=== PATIENT | male | born 1995 | race Caucasian/White ===

== ENCOUNTER 2018-04-25 08:13 | Emergency (ER) | payer OTHER ==
[2018-04-25 08:49] LABS: PLATELET COUNT 244 10^3/uL (150-400)
[2018-04-25] MEDS ORDERED: IOPAMIDOL (ISOVUE-300) 100 ML BTL ONE ×2 (09:34→10:07)
--- NOTE | 2018-04-25 09:57 | EDPHY ---
H & P Stated Complaint: dx hep c/ruq abd pain x 2 weeks/us by pcp Time Seen by Provider: 04/25/18 08:44 HPI/ROS: Chief Complaint: Abdominal pain HPI: 22-year-old male has been having intermittent abdominal pain for the last 2 weeks. He describes it as onset of very sharp right upper so quadrant abdominal pain which becomes a 9/10 which then improved. He was seen by his primary care physician last week and was diagnosed with hepatitis C. He does have a history of drug abuse in the past. He also had an abdominal ultrasound which she reported was negative. This morning he woke up with severe right upper quadrant abdominal pain once again. This has since resolved. Some nausea but no vomiting. No dark black bowel movements or constipation. He does have a history of peritonitis after a ruptured appendicitis. No fevers but some subjective chills this morning. No chest pain or shortness of breath. ROS: 10 point Review of Systems is negative except as noted in the HPI. PMH: IV drug use, hepatitis-C, ruptured appendicitis Social History: Positive smoking, occasional alcohol Family History: non-contributory Physical Exam: Gen: Awake, Alert, No Distress HEENT: Nose: no rhinorrhea Eyes: PERRLA, EOMI Mouth: Moist mucosa Neck: Supple, no JVD Chest: nontender, lungs clear to auscultation Heart: S1, S2 normal, no murmur Abd: Soft, non-tender, no guarding Back: no CVA tenderness, no midline tenderness Ext: no edema, non-tender Skin: no rash Neuro: CN II-XII intact, Sensation grossly intact, Strength 5/5 in bilateral upper and lower extremities - Personal History Current Tetanus Diphtheria and Acellular Pertussis (TDAP): Yes Tetanus Vaccine Date: 2011 - Medical/Surgical History Hx Asthma: No Hx Chronic Respiratory Disease: No Hx Diabetes: No Hx Cardiac Disease: No Hx Renal Disease: No Hx Cirrhosis: No Hx Alcoholism: No Hx HIV/AIDS: No Hx Splenectomy or Spleen Trauma: No Other PMH: ptsd, add, appendectomy w multiple abd surgeries (drains for abcesses ); anxiety;. OPIOID ABUSE W/ PREVIOUS OD, anoxeria - Social History Smoking Status: Current every day smoker Constitutional: Initial Vital Signs Temperature (C) 36.8 C 04/25/18 08:16 Heart Rate 84 04/25/18 08:16 Respiratory Rate 16 04/25/18 08:16 Blood Pressure 121/80 H 04/25/18 08:16 O2 Sat (%) 96 04/25/18 08:16 O2 Delivery Mode Room Air Allergies/Adverse Reactions: No Known Allergies Allergy (Verified 04/25/18 08:15) Home Medications: Medication Instructions Recorded Gabapentin 04/25/18 Hyoscyamine Sulfate [Levsin] 0.25 mg PO Q4 #10 tablet 04/25/18 Medical Decision Making - Diagnostics Imaging Results: Imaging Impressions Abdomen CT 04/25/18 09:06 Impression: No source for right flank pain identified. A message was left for Mehrdad Sellers MD, at 04/25/2018 11:06 General information for patients regarding this examination can be found at [email or web address] If you have questions or comments about this report, please contact me at (hospital) or [phone] (cell). ED Course/Re-evaluation: 22-year-old male with a recent diagnosis of hepatitis-C who is presenting with intermittent crampy abdominal pain. Laboratory evaluations showed a mild elevation in his transaminases otherwise is unremarkable. He had a normal ultrasound by his primary care physician a week ago. CT scan today shows no acute abnormality to explain his pain. He has an appointment to follow up with Infectious Disease. There is no surgical or infectious process at this time. Will treat him with antispasm medications as the pain comes and goes. He is not to be taking ibuprofen or acetaminophen. He will follow up with GI and Infectious Disease. - Data Points Laboratory Results: Laboratory Results 04/25/18 08:37 04/25/18 08:37 04/25/18 04/25/18 08:37 08:37 WBC 7.92 10^3/uL 10^3/uL (3.80-9.50) RBC 6.04 10^6/uL 10^6/uL (4.40-6.38) Hgb 18.9 g/dL H g/dL (13.7-17.5) Hct 52.4 % H % (40.0-51.0) MCV 86.8 fL fL (81.5-99.8) MCH 31.3 pg pg (27.9-34.1) MCHC 36.1 g/dL g/dL (32.4-36.7) RDW 13.3 % % (11.5-15.2) Plt Count 244 10^3/uL 10^3/uL (150-400) MPV 9.4 fL fL (8.7-11.7) Neut % (Auto) 74.3 % H % (39.3-74.2) Lymph % (Auto) 15.9 % % (15.0-45.0) [place] % (Auto) 7.8 % % (4.5-13.0) Eos % (Auto) 0.8 % % (0.6-7.6) Baso % (Auto) 0.9 % % (0.3-1.7) Nucleat RBC Rel Count 0.0 % % (0.0-0.2) Absolute Neuts (auto) 5.89 10^3/uL 10^3/uL (1.70-6.50) Absolute Lymphs (auto) 1.26 10^3/uL 10^3/uL (1.00-3.00) Absolute Monos (auto) 0.62 10^3/uL 10^3/uL (0.30-0.80) Absolute Eos (auto) 0.06 10^3/uL 10^3/uL (0.03-0.40) Absolute Basos (auto) 0.07 10^3/uL 10^3/uL (0.02-0.10) Absolute Nucleated RBC 0.00 10^3/uL 10^3/uL (0-0.01) Immature Gran % 0.3 % % (0.0-1.1) Immature Gran # 0.02 10^3/uL 10^3/uL (0.00-0.10) Sodium 137 mEq/L mEq/L (135-145) Potassium 4.0 mEq/L mEq/L (3.3-5.0) Chloride 99 mEq/L mEq/L (97-110) Carbon Dioxide 25 mEq/l mEq/l (22-31) Anion Gap 13 mEq/L mEq/L (8-16) BUN 9 mg/dL mg/dL (7-23) Creatinine 0.8 mg/dL mg/dL (0.7-1.3) Estimated GFR > 60 Glucose 94 mg/dL mg/dL (70-100) Calcium 10.1 mg/dL mg/dL (8.5-10.4) Total Bilirubin 1.4 mg/dL mg/dL (0.1-1.4) Conjugated Bilirubin 0.4 mg/dL mg/dL (0.0-0.5) Unconjugated Bilirubin 1.0 mg/dL mg/dL (0.0-1.1) AST 78 IU/L H IU/L (17-59) ALT 192 IU/L H IU/L (21-72) Alkaline Phosphatase 73 IU/L IU/L (38-126) Total Protein 7.9 g/dL g/dL (6.3-8.2) Albumin 4.6 g/dL g/dL (3.5-5.0) Lipase 73 IU/L IU/L (23-300) Departure - Departure Disposition: Home, Routine, Self-Care Clinical Impression: Abdominal pain Condition: Good Instructions: Acute Abdominal Pain (ED) Additional Instructions: Follow up with primary care physician and infectious disease doctor in the next 3-4 days. You may take antispasm medication if you're abdominal pain returns. Return to the emergency department for persistent uncontrolled pain, nausea vomiting, fevers, chills, or any other concerns. Referrals: Donn Escalona MD [Primary Care Provider] - As per Instructions Prescriptions: Hyoscyamine Sulfate [Levsin] 0.25 mg PO Q4 #10 tablet
[2018-04-25 11:16] VITALS: BP 131/86
== END 2018-04-25 11:42 | disposition home or self-care (01) ==
DX: R10.9 Unspecified abdominal pain (principal); F17.200 Nicotine dependence, unspecified, uncomplicated; Z90.89 Acquired absence of other organs
CPT/HCPCS: Q9967

== ENCOUNTER 2018-07-13 07:47 | Day surgery (SDC) | payer OTHER ==
[2018-07-13] MEDS ORDERED: LR 1,000 ML IV ONE (07:54)
--- NOTE | 2018-07-13 08:20 | PDANEPAE ---
ANE Past Medical History - Cardiovascular History Hx Hypertension: No Hx Arrhythmias: No Hx Chest Pain: No Hx Coronary Artery / Peripheral Vascular Disease: No Hx CHF / Valvular Disease: No Hx Palpitations: No - Pulmonary History Hx COPD: No Hx Asthma/Reactive Airway Disease: No Hx Recent Upper Respiratory Infection: No Hx Oxygen in Use at Home: No Hx Sleep Apnea: No Sleep Apnea Screening Result - Last Documented: Negative Pulmonary History Comment: PNEUMONIA 2016 - Neurologic History Hx Cerebrovascular Accident: No Hx Seizures: No Hx Dementia: No - Endocrine History Hx Diabetes: No - Renal History Hx Renal Disorders: No - Liver History Hx Hepatic Disorders: Yes Hepatic History Comment: HEP C TAKING PO MEDICATION TO TREAT - Neurological & Psychiatric Hx Hx Neurological and Psychiatric Disorders: Yes Neurological / Psychiatric History Comment: ANXIETY - Cancer History Hx Cancer: No - Congenital Disorder History Hx Congenital Disorders: No - GI History Hx Gastrointestinal Disorders: Yes Gastrointestinal History Comment: INTERMITTENT HEARTBURN. C-DIFF 05/02/18. RT FLANK DISCOMFORT SINCE 03/2018 - Other Health History Other Health History: PREV HEROIN OD - Chronic Pain History Chronic Pain: Yes (RT FLANK) - Surgical History Prior Surgeries: APPENDENDECTOMY RUPTURED WITH PERITONITIS WITH POST ABCESS REMVL ANE Review of Systems Review of Systems: - Exercise capacity METS (RN): 6 METS ANE Patient History - Allergies Allergies/Adverse Reactions: No Known Allergies Allergy (Verified 04/25/18 08:15) - Home Medications Home Medications: Gabapentin BID 04/25/18 [Last Taken Unknown] Bentyl 10 MG (*) PRN 06/20/18 [Last Taken Unknown] Fiber DAILY 06/20/18 [Last Taken Unknown] Harvoni 90-400 mg Tablet DAILY 06/20/18 [Last Taken Unknown] Herbals/Supplements -Info Only DAILY 06/20/18 [Last Taken Unknown] Pepcid 20 MG (*) DAILY 06/20/18 [Last Taken Unknown] - NPO status NPO Since - Liquids (Date): 07/12/18 NPO Since - Liquids (Time): 23:00 NPO Since - Solids (Date): 07/12/18 NPO Since - Solids (Time): 09:00 - Smoking Hx Smoking Status: Current some day smoker ANE Labs/Vital Signs - Vital Signs Blood Pressure: 139/90 Heart Rate: 73 Respiratory Rate: 14 O2 Sat (%): 97 Height: 182.88 cm Weight: 75.296 kg ANE Physical Exam - Airway Neck exam: FROM Mallampati Score: Class 1 Mouth exam: normal dental/mouth exam - Pulmonary Pulmonary: no respiratory distress - Cardiovascular Cardiovascular: regular rate and rhythym - ASA Status ASA Status: II ANE Anesthesia Plan Total IV Anesthesia: Yes
[2018-07-13] MEDS ORDERED: PROPOFOL/EMULSION 500 MG/50 ML BOTTLE IV ONE ×2 (08:44→09:33)
[2018-07-13] MEDS ORDERED: LIDOCAINE 2% 100 MG/5 ML SYR ONE (08:44)
--- NOTE | 2018-07-13 09:24 | PDGENHP ---
History & Physical Chief Complaint: CC: Abdominal pain History of Present Illness: 23 year old male with HCV. Patient has been on treatment with Harvoni. Hx of IV and ETOH use. Presents with c/o abdominal pain. Prior history of appendicitis with abcess and prolonged hospital course. Hx of adhesions and abdominal pain. Normal CT scan and abdominal U/S. Pertinent Past, Social, Family History: see above Relevant Physical Exam: Lungs clear. Cardiac normal s1s2
[2018-07-13] MEDS ORDERED: NALOXONE HCL 0.4 MG/ML INJ IVP PRN (09:40)
[2018-07-13] MEDS ORDERED: ONDANSETRON 4 MG/2 ML VIAL IVP PRN (09:40)
[2018-07-13] MEDS ORDERED: ALBUTEROL 3 ML DEYVIAL IH PRN (09:40)
--- NOTE | 2018-07-13 11:17 | POSTANESTH ---
Post Anesthetic Evaluation Cardiovascular Status: Similar to Pre-Op Cond Respiratory Status: Similar to Pre-op Cond. Level of Consciousness/Mental Status: Alert and Oriented Pain Control: Adequate, Prn Tx Ordered Nausea/Vomiting Control: Adequate, Prn Tx Ordered Complications Possibly Related to Anesthesia: None Noted
[2018-07-13 11:59] VITALS: BP 125/90
--- NOTE | 2018-07-20 11:08 | GIREPORT ---
[facility] - Endoscopy Department Patient Name: Arcenio Adan Procedure Date: 07/13/2018 9:33 AM Patient Type: Outpatient Attending / ER Physician: Johnathan Chandra MD Procedure: Colonoscopy Indications: Abdominal pain in the right upper quadrant Providers: Johnathan Chandra MD Medicines: Propofol per Anesthesia, General Anesthesia Complications: No immediate complications. Description of Procedure: After obtaining informed consent, the scope was passed under direct vis ion. Throughout the procedure, the patient's blood pressure, pulse, and oxyg en saturations were monitored continuously. The Colonoscope with irrigatio n channel was introduced through the anus and advanced to the cecum, identified by appendiceal orifice and ileocecal valve. The colonoscopy was performed without difficulty. The patient tolerated the procedure well. The quality of the bowel preparation was good. The terminal ileum, ileoceca l valve, appendiceal orifice, and rectum were photographed. Moderate Sedation: GA Findings: The terminal ileum appeared normal. The colon (entire examined portion) appeared normal. Biopsies for histo logy were taken with a cold forceps from the ascending colon for evaluation of microscopic colitis. No additional abnormalities were found on retroflexion. Estimated Blood Loss: Estimated blood loss: none. Post Op Diagnosis: - The examined portion of the ileum was normal. - The entire examined colon is normal. Biopsied. - No source for abdominal pain identified. Recommendation: - Patient has a contact number available for emergencies. The signs and symptoms of potential delayed complications were discussed with the pat ient. Return to normal activities tomorrow. Written discharge instructions we re provided to the patient. - Resume regular diet. - Continue present medications. - Await pathology results. - Repeat colonoscopy at age 48 for screening purposes. - Trial of Nortriptyline 50 mg po qhs. - Return to GI office in 2 months. - Thank you for allowing me to participate in the care of your patient. Attending Participation: I personally performed the entire procedure. Johnathan Chandra MD Johnathan Chandra MD 07/13/2018 10:06:35 AM This report has been signed electronicallyJohnathan Chandra MD Number of Addenda: 0 Note Initiated On: 07/13/2018 9:33 AM Total Procedure Duration Time 0 hours 10 minutes 6 seconds [email or web address]
--- NOTE | 2018-07-20 11:08 | GIREPORT ---
[facility] Surgical Services - Endoscopy Department Patient Name: Arcenio Adan Procedure Date: 07/13/2018 8:25 AM Patient Type: Outpatient Attending MD/ ER Physician: Johnathan Chandra MD Procedure: Upper GI endoscopy Indications: Abdominal pain in the right upper quadrant, History of HCV, s/p treatme nt with Harvoni. Normal CT Scan of the abdomen, normal RUQ US and normal H JACQUES Scan. Providers: Johnathan Chandra MD Medicines: Propofol per Anesthesia Complications: No immediate complications. Description of Procedure: After obtaining informed consent, the endoscope was passed under direct vision. Throughout the procedure, the patient's blood pressure, pulse, and oxygen saturations were monitored continuously. The Endoscope was intro duced through the mouth, and advanced to the second part of duodenum[facility] accomplished without difficulty. The patient tolerated th e procedure well. Moderate Sedation: GA Findings: The examined esophagus was normal. Biopsies were taken with a cold forc eps for histology. A small hiatal hernia was present. Patchy mildly erythematous mucosa without bleeding was found in the gas tric antrum. Biopsies were taken with a cold forceps for Helicobacter pylori testing. The examined duodenum was normal. Biopsies for histology were taken wit h a cold forceps for evaluation of celiac disease. Estimated Blood Loss: Estimated blood loss: none. Post Op Diagnosis: - Normal esophagus. Biopsied. - Small hiatal hernia. - Erythematous mucosa in the antrum. Biopsied. - Normal examined duodenum. Biopsied. Recommendation: - Await pathology results. - Perform a colonoscopy today. - Thank you for allowing me to participate in the care of your patient. Attending Participation: I personally performed the entire procedure. Johnathan Chandra MD Johnathan Chandra MD 07/13/2018 9:37:51 AM This report has been signed electronicallyStolivia Chandra MD Number of Addenda: 0 Note Initiated On: 07/13/2018 8:25 AM [email or web address]
== END 2018-07-13 11:52 | disposition home or self-care (01) ==
LOC: FSGY 07:47
PROVIDERS: ATTEND Internal Medicine Gastroenterology
DX: R10.11 Right upper quadrant pain (principal); B19.20 Unspecified viral hepatitis C without hepatic coma; F41.9 Anxiety disorder, unspecified; F11.21 Opioid dependence, in remission; Z91.5 Personal history of self-harm
CPT/HCPCS: J2001; J2704

== ENCOUNTER 2018-07-20 10:02 | Emergency (ER) | payer OTHER ==
[2018-07-20] MEDS ORDERED: METOCLOPRAMIDE 10 MG/2 ML VIAL IVP ONE (10:34)
[2018-07-20] MEDS ORDERED: NS 1,000 ML IV ONE (10:34)
[2018-07-20] MEDS ORDERED: KETOROLAC 30 MG/1 ML SDV IVP ONE (10:37)
--- NOTE | 2018-07-20 10:41 | EDPHY ---
H & P Stated Complaint: Acute on chronic epigastric pain Time Seen by Provider: 07/20/18 10:31 HPI/ROS: CHIEF COMPLAINT: Chronic abdominal pain HISTORY OF PRESENT ILLNESS: The patient is a 23-year-old man who reports that he has been having chronic abdominal pain since April 19. He reports that he has been to the ER for 5 times as well as seen by Gastroenterology. He has had an upper endoscopy and colonoscopy that have been negative. He has had several CT scans all of which have been negative. He has had 2 ultrasounds which have been negative. He reports that he has ongoing symptoms. They are slightly worse than usual today. He has been taking his home medications without relief. He also has a history of opiate abuse and overdose with a previous visit for cardiac arrest after overdose. He has had an appendectomy complicated by abscess formation and repeat surgeries. Severity: Moderate but chronic Modifying factors: None REVIEW OF SYSTEMS: Constitutional: denies: chills, fever, recent illness, recent injury EENTM: denies: blurred vision, double vision, nose congestion Respiratory: denies: cough, shortness of breath Cardiac: denies: chest pain, irregular heart rate, lightheadedness, palpitations Gastrointestinal/Abdominal: See HPI denies: diarrhea, nausea, vomiting, blood streaked stools Genitourinary: denies: dysuria, frequency, hematuria, pain Musculoskeletal: denies: joint pain, muscle pain Skin: denies: lesions, rash, jaundice, bruising Neurological: denies: headache, numbness, paresthesia, tingling, dizziness, weakness Hematologic/Lymphatic: denies: blood clots, easy bleeding, easy bruising Immunologic/allergic: denies: HIV/AIDS, transplant 10 systems reviewed and negative except as noted EXAM: GENERAL: Well-appearing, well-nourished and in no acute distress. HEAD: Atraumatic, normocephalic. EYES: Pupils equal round and reactive to light, extraocular movements intact, sclera anicteric, conjunctiva are normal. ENT: TMs normal, nares patent, oropharynx clear without exudates. Moist mucous membranes. NECK: Normal range of motion, supple without lymphadenopathy or JVD. LUNGS: Breath sounds clear to auscultation bilaterally and equal. No wheezes rales or rhonchi. HEART: Regular rate and rhythm without murmurs, rubs or gallops. ABDOMEN: Soft, nontender, normoactive bowel sounds. No guarding, no rebound. No masses appreciated. BACK: No CVA tenderness, no spinal tenderness, step-offs or deformities EXTREMITIES: Normal range of motion, no pitting or edema. No clubbing or cyanosis. NEUROLOGICAL: Cranial nerves II through XII grossly intact. Normal speech, normal gait. 5/5 strength, normal movement in all extremities, normal sensation , normal reflexes PSYCH: Normal mood, normal affect. SKIN: Warm, dry, normal turgor, no visible rashes or lesions. Source: Patient Exam Limitations: No limitations - Personal History Current Tetanus/Diphtheria Vaccine: Yes Current Tetanus Diphtheria and Acellular Pertussis (TDAP): Yes Tetanus Vaccine Date: 2011 - Medical/Surgical History Hx Asthma: No Hx Chronic Respiratory Disease: No Hx Diabetes: No Hx Cardiac Disease: No Hx Renal Disease: No Hx Cirrhosis: No Hx Alcoholism: No Hx HIV/AIDS: No Hx Splenectomy or Spleen Trauma: No Other PMH: ptsd, add, appendectomy w multiple abd surgeries (drains for abcesses ); anxiety;. OPIOID ABUSE W/ PREVIOUS OD, anoxeria - Family History Significant Family History: No pertinent family hx - Social History Smoking Status: Former smoker Alcohol Use: Sober Drug Use: None Constitutional: Initial Vital Signs Temperature (C) 36.6 C 07/20/18 10:10 Heart Rate 68 07/20/18 10:10 Respiratory Rate 16 07/20/18 10:10 Blood Pressure 124/72 H 07/20/18 10:10 O2 Sat (%) 97 07/20/18 10:10 O2 Delivery Mode Room Air Allergies/Adverse Reactions: No Known Allergies Allergy (Verified 04/25/18 08:15) Home Medications: Medication Instructions Recorded Fiber DAILY 06/20/18 Harvoni 90-400 mg Tablet DAILY 06/20/18 Herbals/Supplements -Info Only DAILY 06/20/18 Pepcid 20 MG (*) DAILY 06/20/18 Hyoscyamine Sulfate 07/20/18 Nortriptyline HCl 07/20/18 Ondansetron Odt [Zofran Odt 4 mg 4 mg PO Q4 PRN #20 tab 07/20/18 (RX)] Medical Decision Making ED Course/Re-evaluation: The patient's abdomen is completely benign. He describes the pain as being in the epigastric region. He denies significant alcohol abuse. He is afebrile. We discussed further testing here in the department but it seems like it would be of little use. He has had multiple tests were in the last couple of months that have all been negative. Her symptoms have not significantly changed. We agreed to try and manage his pain in I will recheck his lab work. 11:45 a.m. the patient's abdominal exam remains benign. He states that it does not really feel better. His lab work is reassuring. We will try ketamine. I offered Haldol which she states makes him very agitated. He states that he has never really found a particular medication that is helpful for his chronic pain. 1:00 p.m. The patient does have some improvement after ketamine. He is asking for 2nd dose before goes. Otherwise he would like to go home. He has follow- up appointment with his gastrologist on the . He is asking for refill of Zofran. He declines other testing or workup. Differential Diagnosis: Partial list of the Differential diagnosis considered include but were not limited to; chronic abdominal pain, gastroparesis and although unlikely based on the history and physical exam, I also considered perforation, biliary disease , liver disease, obstruction, ischemia. I discussed these differential diagnoses and the plan with the patient as well as the usual and expected course. The patient understands that the diagnosis is provisional and that in medicine we are not always correct and that further workup is often warranted. Usual and customary warnings were given. All of the patient's questions were answered. The patient was instructed to return to the emergency department should the symptoms at all worsen or return, otherwise to followup with the physician as we discussed. - Data Points Laboratory Results: Laboratory Results 07/20/18 10:50 07/20/18 10:50 07/20/18 07/20/18 10:50 10:50 WBC 7.71 10^3/uL 10^3/uL (3.80-9.50) RBC 5.72 10^6/uL 10^6/uL (4.40-6.38) Hgb 17.4 g/dL g/dL (13.7-17.5) Hct 48.6 % % (40.0-51.0) MCV 85.0 fL fL (81.5-99.8) MCH 30.4 pg pg (27.9-34.1) MCHC 35.8 g/dL g/dL (32.4-36.7) RDW 13.1 % % (11.5-15.2) Plt Count 257 10^3/uL 10^3/uL (150-400) MPV 8.9 fL fL (8.7-11.7) Neut % (Auto) 67.1 % % (39.3-74.2) Lymph % (Auto) 25.7 % % (15.0-45.0) [place] % (Auto) 5.4 % % (4.5-13.0) Eos % (Auto) 1.0 % % (0.6-7.6) Baso % (Auto) 0.5 % % (0.3-1.7) Nucleat RBC Rel Count 0.0 % % (0.0-0.2) Absolute Neuts (auto) 5.17 10^3/uL 10^3/uL (1.70-6.50) Absolute Lymphs (auto) 1.98 10^3/uL 10^3/uL (1.00-3.00) Absolute Monos (auto) 0.42 10^3/uL 10^3/uL (0.30-0.80) Absolute Eos (auto) 0.08 10^3/uL 10^3/uL (0.03-0.40) Absolute Basos (auto) 0.04 10^3/uL 10^3/uL (0.02-0.10) Absolute Nucleated RBC 0.00 10^3/uL 10^3/uL (0-0.01) Immature Gran % 0.3 % % (0.0-1.1) Immature Gran # 0.02 10^3/uL 10^3/uL (0.00-0.10) Sodium 141 mEq/L mEq/L (135-145) Potassium 4.0 mEq/L mEq/L (3.3-5.0) Chloride 102 mEq/L mEq/L (97-110) Carbon Dioxide 27 mEq/l mEq/l (22-31) Anion Gap 12 mEq/L mEq/L (8-16) BUN 13 mg/dL mg/dL (7-23) Creatinine 0.9 mg/dL mg/dL (0.7-1.3) Estimated GFR > 60 Glucose 90 mg/dL mg/dL (70-100) Calcium 10.1 mg/dL mg/dL (8.5-10.4) Total Bilirubin 0.9 mg/dL mg/dL (0.1-1.4) Conjugated Bilirubin 0.1 mg/dL mg/dL (0.0-0.5) Unconjugated Bilirubin 0.8 mg/dL mg/dL (0.0-1.1) AST 24 IU/L IU/L (17-59) ALT 29 IU/L IU/L (21-72) Alkaline Phosphatase 66 IU/L IU/L (38-126) Total Protein 7.7 g/dL g/dL (6.3-8.2) Albumin 4.8 g/dL g/dL (3.5-5.0) Lipase 67 IU/L IU/L (23-300) Medications Given: Discontinued Medications Sodium Chloride (Ns) 1,000 mls @ 0 mls/hr IV EDNOW ONE; Wide Open PRN Reason: Protocol Stop: 07/20/18 10:35 Last Admin: 07/20/18 10:50 Dose: 1,000 mls Ketamine HCl (Ketamine) 20 mg IVP EDNOW ONE Stop: 07/20/18 11:42 Last Admin: 07/20/18 11:58 Dose: 20 mg Ketamine HCl (Ketamine) 20 mg IVP EDNOW ONE Stop: 07/20/18 13:04 Last Admin: 07/20/18 13:36 Dose: 20 mg Ketorolac Tromethamine (Toradol) 15 mg IVP EDNOW ONE Stop: 07/20/18 10:38 Last Admin: 07/20/18 10:50 Dose: 15 mg Metoclopramide HCl (Reglan Injection) 10 mg IVP EDNOW ONE Stop: 07/20/18 10:35 Last Admin: 07/20/18 10:50 Dose: 10 mg Departure - Departure Disposition: Home, Routine, Self-Care Clinical Impression: Abdominal pain Qualifiers: Abdominal location: epigastric Qualified Code(s): R10.13 - Epigastric pain Condition: Fair Instructions: Chronic Abdominal Pain (ED) Referrals: Donn Escalona MD [Primary Care Provider] - As per Instructions Johnathan Chandra MD [Medical Doctor] - 5-7 days, call for appt. Prescriptions: Ondansetron Odt [Zofran Odt 4 mg (RX)] 4 mg PO Q4 PRN #20 tab PRN Reason: Nausea & Vomiting
[2018-07-20 11:04] LABS: PLATELET COUNT 257 10^3/uL (150-400)
[2018-07-20] MEDS ORDERED: KETAMINE 200 MG/20 ML VIAL IVP ONE ×2 (11:41→13:03)
[2018-07-20 13:44] VITALS: BP 125/86
--- NOTE | 2018-07-20 16:30 | ASMTCMCOM ---
CM Note CM Note Notes: Pt has an appt with Azael on 08/22/18 but is requesting assistance with getting a sooner appt. This CM called Azael and was able to get pt an appt w/ Dr. Chandra on 07/25/18 at 8:30am at the [facility]. Spoke w/pt and he states this appt will work great. CM available for further assistance if needed. Date Signed: 07/20/2018 04:04 PM Electronically Signed By:Sera Augustine RN
== END 2018-07-20 14:00 | disposition home or self-care (01) ==
DX: R10.13 Epigastric pain (principal); E86.9 Volume depletion, unspecified; Z87.891 Personal history of nicotine dependence
CPT/HCPCS: 96374; J1885; J2765

== ENCOUNTER → 2018-07-27 | Outpatient (CLI) | payer OTHER ==
[~2018-07-27] MED LIST: GADOBUTROL 10 ML VIAL IVP ONE
== END ==
LOC: FIMAGING 07:36
PROVIDERS: ATTEND Family Medicine
DX: R10.9 Unspecified abdominal pain (principal); R09.89 Other specified symptoms and signs involving the circulatory and respiratory systems
CPT/HCPCS: A9585; C8902

== ENCOUNTER → 2018-08-14 | Outpatient (CLI) | payer OTHER ==
[~2018-08-14] MED LIST changes: +GLUCAGON HCL 0.3 MG in SYRINGE 0.3 ML IVP ONE
== END ==
LOC: FIMAGING 11:51
PROVIDERS: ATTEND Internal Medicine Gastroenterology
DX: R14.0 Abdominal distension (gaseous) (principal)
CPT/HCPCS: A9585; J1610